=== PATIENT | female | born 1970 | race African-American/Black ===

== ENCOUNTER 2016-12-07 15:14 | Emergency (ER) | payer OTHER ==
[2016-12-07 15:20] VITALS: PULSE 85; TEMP 98.4; BMI 27.1
[2016-12-07] MEDS ORDERED: SODIUM CHLORIDE 1,000 ML IV ONE (15:47)
[2016-12-07] MEDS ORDERED: MECLIZINE HCL 25 MG TABLET (FP) PO ONE ×2 (15:47→17:38)
--- NOTE | 2016-12-07 15:47 | PDOC ---
History of Present Illness - History of Present Illness Initial Comments: 12/07/16 17:18 The patient is a 46 year old female, with a significant past medical history of asthma and vertigo (50mg meclizine as needed), who presents to the emergency department for intermittent dizziness, palpitations, and moments of closing here eyes and 'seeing black' today. The patient is a respiratory therapist at [employer]. She states her episodes of dizziness, which has a sesnation of room spinining/off balance sensation have occurred both while seated and standing. She states she needed to lean against the wall during an episode of dizziness while she was standing. She reports her dizziness lasts for just a few seconds and is followed by seeing black after closing her eyes (pt does report she rmained standing/seated when this occurred and there was no loss of tone) She reports a few short periods of heart palpitations which she noticed last week, however, reports last experiencing the palpitations earlier this afternoon during an episode of dizziness at work. She denies eating breakfast today, but reports eating lunch. She states she rarely eats breakfast. She admits to drinking about 22oz of water today because her 24oz bottle is almost empty. She states her vertigo is primarily head spinning, but not entire room spinning, and palpitations. She states she has the IUD in place and reports her menstrual periods are irregular because of it. She denies chest pain, shortness of breath, and headache. She denies fever, chills, nausea, vomit, diarrhea and constipation. She denies dysuria, frequency , urgency and hematuria. She denies vaginal bleeding. Allergies: NKDA Social history: Pt denies toxic habits PCP - Dr. Kapoor ([facility]) <Josette Moran - Last Filed: 12/07/16 17:18> <Miguel Sierra - Last Filed: 12/07/16 17:42> - General Chief Complaint: Syncope/Near Syncope Stated Complaint: NEAR SYNCOPE Time Seen by Provider: 12/07/16 15:18 Past History <Josette Moran - Last Filed: 12/07/16 17:18> - Past Medical History Asthma: Yes - Psycho/Social/Smoking Cessation Hx Anxiety: No Suicidal Ideation: No Smoking History: Never smoked Information on smoking cessation initiated: No Hx Alcohol Use: No Drug/Substance Use Hx: No Substance Use Type: None <Mariela,Miguel - Last Filed: 12/07/16 17:42> - Past Medical History Allergies/Adverse Reactions: Allergies Allergy/AdvReac Type Severity Reaction Status Date / Time albuterol Allergy Verified 12/09/15 11:30 hydromorphone HCl Allergy Hives Verified 12/09/15 11:31 [From Dilaudid] sumatriptan [From Imitrex] Allergy Verified 12/09/15 11:30 sumatriptan succinate Allergy Verified 12/09/15 11:30 [From Imitrex] Home Medications: Ambulatory Orders Meclizine HCl [Antivert -] 25 mg PO TID PRN #30 tablet 12/07/16 Review of Systems - Review of Systems Able to Perform ROS?: Yes Comments:: 12/07/16 17:18 CONSTITUTIONAL: No reported: Fever, Chills, Diaphoresis, Generalized Weakness, Malaise, Loss of Appetite HEENT: No reported: Rhinorrhea, Nasal Congestion, Throat Pain, Throat Swelling, Difficulty Swallowing, Mouth Swelling, Ear Pain, Eye Pain, CARDIOVASCULAR: reported: palpitations No reported: Chest Pain, Syncope, Irregular Heart Rate, Peripheral Edema RESPIRATORY: No reported: Cough, Shortness of Breath, SOB with Exertion, Orthopnea, Wheezing , Stridor, Hemoptysis GASTROINTESTINAL: No reported: Abdominal pain, Abdominal Distension, Nausea, Vomiting, Diarrhea, Constipation, Melena, Hematochezia GENITOURINARY: No reported: Dysuria, Frequency, Urgency, Hesitancy, Flank Pain, Genital Pain MUSCULOSKELETAL: No reported: Myalgia, Arthralgia, Joint Swelling, Back pain, Neck Pain SKIN: No reported: Rash, Itching, Pallor HEMEATOLOGIC/IMMUNOLOGIC: No reported: Easy Bleeding, Easy Bruising, Lymphadenopathy, Frequent infections ENDOCRINE: No reported: Unexplained Weight Gain, Unexplained Weight Loss, Heat Intolerance , Cold Intolerance NEUROLOGIC: (+) dizziness. No reported: Headache, Focal Weakness, Paresthesias, Lightheadedness, Unsteady Gait, Seizure, Mental Status Changes, Incontinence PSYCHIATRIC: No reported: Anxiety, Depression <Josette Moran - Last Filed: 12/07/16 17:18> *Physical Exam - Vital Signs Last Vital Signs Temp Pulse Resp BP Pulse Ox 98.4 F 85 20 113/68 100 12/07/16 15:18 04/23/17 15:18 12/07/16 15:18 12/07/16 16:57 12/07/16 15:18 - Physical Exam Comments: 12/07/16 17:18 GENERAL: The patient is awake, alert, and fully oriented, Nontoxic - in no acute distress. HEAD: Normocephalic, atraumatic. EYES: extraocular movements intact, sclera anicteric, conjunctiva clear. ENT: Normal voice, Moist mucous membranes. NECK: Normal range of motion, supple LUNGS: Breath sounds equal, clear to auscultation bilaterally. No wheezes, no rhonchi, no rales. HEART: Regular rate and rhythm, without murmur, rub or gallop. ABDOMEN: Soft, nontender, normoactive bowel sounds. No guarding, no rebound.No CVA tenderness EXTREMITIES: Normal range of motion, no edema. No clubbing or cyanosis. No cords, erythema, or tenderness. PSYCH: Normal mood, normal affect. SKIN: Warm, Dry, normal turgor, NEURO: moving all 4 extremities spontaneously and symmetrically, sensation intact and symmetric in upper/lower extremities, normal finger to nose and rapid alternating movements, <Josette Moran - Last Filed: 12/07/16 17:18> - Vital Signs Last Vital Signs Temp Pulse Resp BP Pulse Ox 98.4 F 85 20 140/108 100 12/07/16 15:18 12/07/16 15:18 12/07/16 15:18 12/07/16 15:18 12/07/16 15:18 <Miguel Sierra - Last Filed: 12/07/16 17:42> Heart Score/ECG Review - ECG Impressions Comment:: 12/07/16 17:39 Twelve-lead EKG was performed and reviewed by me. There is normal sinus rhythm with a normal rate. Rate of 72 The axis is normal. The intervals are normal. There is normal R wave progression There are no ST or T wave abnormalities. Impression: Normal twelve-lead EKG <Miguel Sierra - Last Filed: 12/07/16 17:42> ED Treatment Course - LABORATORY CBC & Chemistry Diagram: 12/07/16 15:49 12/07/16 15:49 - ADDITIONAL ORDERS Additional order review: Laboratory Results 12/07/16 12/07/16 15:49 15:49 Sodium 140 Potassium 4.2 Chloride 106 Carbon Dioxide 25 Anion Gap 9 BUN 13 D Creatinine 0.8 Creat Clearance w eGFR > 60 Random Glucose 93 Calcium 8.9 Total Bilirubin 0.9 D AST 29 D ALT 28 Alkaline Phosphatase 120 H Total Protein 7.0 Albumin 3.9 Urine Color Colorless Urine Appearance Clear Urine pH 7.0 D Ur Specific [place] 1.005 Urine Protein Negative Urine Glucose (UA) Negative Urine Ketones Negative Urine Blood 2+ H Urine Nitrite Negative Urine Bilirubin Negative Urine Urobilinogen Negative Ur Leukocyte Esterase 1+ H Urine RBC 6 Urine WBC 2 Ur Epithelial Cells Rare Urine HCG, Qual Negative 12/07/16 15:49 RBC 4.07 MCV 96.1 H MCHC 33.9 RDW 13.1 MPV 7.2 L Neutrophils % 54.8 Lymphocytes % 38.9 Monocytes % 5.0 Eosinophils % 0.5 Basophils % 0.8 D - Medications Given in the ED: ED Medications Discontinued Medications Generic Name Dose Route Start Last Admin Trade Name Ericq PRN Reason Stop Dose Admin Sodium Chloride 1,000 mls @ 1,000 mls/hr 12/07/16 15:47 12/07/16 16:19 Normal Saline - IV 12/07/16 16:46 1,000 mls/hr .Q1H ONE Administration Meclizine HCl 25 mg 12/07/16 15:47 12/07/16 15:52 Antivert - PO 12/07/16 15:48 25 mg ONCE ONE Administration <Josette Moran - Last Filed: 12/07/16 17:18> - LABORATORY CBC & Chemistry Diagram: 12/07/16 15:49 12/07/16 15:49 <Miguel Sierra - Last Filed: 12/07/16 17:42> Medical Decision Making - Medical Decision Making 12/07/16 15:58 46y no pmhx presents with complaint of vertigo/dizziness and episodes of ' seeing black', pt has endorsed feelng intemrittent episodes of palptiations w/o any cp the previous week - pt states she was at work today and had intermittent episodes where she would feel vertingous for a brief period, she would then close here eyes and 'see black for a few seconds' however there was no loss of tone. pt has an unremarkable physical exam. her vitals are normal. differential for the pts symptmos include orthostasis, anemia, vertigo, arrythmia, metabolic dernagement will ck cbc, cmp, will ck ekg to screen for arrythmia ua/uhcg will hydrate with fluids will give meclizien will reassess A portion of this note was documented by scribe services under my direction. I have reviewed the details of the note, within reason, and agree with the documentation with the following case summary and management plan written by me 12/07/16 17:36 labs reivewed pt feeling imrproved pt also states she has worked 7 13 hr shifts over the past 7 days, suspect her sypmtmos may also be secondary to exhaustion will d/c the pt back home to rest return precautions were discussed I discussed the physical exam findings, ancillary test results and final diagnoses with the patient. I answered all of the patient's questions. The patient was satisfied with the care received and felt comfortable with the discharge plan and treatment plan. The patient will call their primary care physician within 24 hours to arrange follow-up and will return to the Emergency Department with any new, persistent or worsening symptoms. <Miguel Sierra - Last Filed: 12/07/16 17:42> *DC/Admit/Observation/Transfer - Attestations Scribe Attestion: 12/07/16 17:20 Documentation prepared by Josette Moran, acting as medical collections specialist for Miguel Sierra MD, <Josette Moran - Last Filed: 12/07/16 17:18> - Discharge Dispostion Admit: No <Miguel Sierra - Last Filed: 12/07/16 17:42> Diagnosis at time of Disposition: Dizziness, Exhaustion - Discharge Dispostion Disposition: HOME Condition at time of disposition: Improved - Prescriptions Prescriptions: Meclizine HCl [Antivert -] 25 mg PO TID PRN #30 tablet PRN Reason: Vertigo - Referrals Referrals: STAFF,NOT ON [Primary Care Provider] - - Patient Instructions Printed Discharge Instructions: DI for Vertigo Additional Instructions: Return to the emergency department immediately with ANY new, persistent or worsening symptoms. You MUST call and follow up with your doctor tomorrow for further evaluation of your symptoms. Results were discussed with you. Please make sure your doctor reviews the results of your emergency evaluation. If you had any xrays during your visit, it was read preliminarily by myself, a Radiologist will review it and if there are any additional findings we will call you. Print Language: BRITISH - Post Discharge Activity Work/School Note: Back to Work
[2016-12-07] MEDS ORDERED: MECLIZINE HCL 25 MG TABLET (FP) ONE ×2 (15:52→17:38)
[2016-12-07 16:11] LABS: BASOPHIL 0.8 % (0-2.0); EOSINOPHIL 0.5 % (0-4.5); MCH 32.6 pg (25.7-33.7); MCHC 33.9 g/dl (32.0-36.0); MEAN CELL VOLUME 96.1 fl (80-96); MEAN PLT VOLUME 7.2 fl (7.5-11.1); NEUTROPHILS 54.8 % (42.8-82.8); PLATELET COUNT 244 K/MM3 (134-434); RDW 13.1 % (11.6-15.6); WHITE BLOOD COUNT 5.3 K/mm3 (4.0-10.0)
[2016-12-07 16:23] LABS: URINE APPEARANCE CLEAR; URINE BILIRUBIN NEGATIVE (NEGATIVE); URINE COLOR COLORLESS; URINE GLUCOSE (UA) NEGATIVE (NEGATIVE); URINE KETONE NEGATIVE (NEGATIVE); URINE NITRITE NEGATIVE (NEGATIVE); URINE PROTEIN NEGATIVE (NEGATIVE); URINE UROBILINOGEN NEGATIVE E.U./dl (0.2-1.0)
[2016-12-07 16:24] LABS: URINE BLOOD 2+ (NEGATIVE); URINE LEUK ESTERASE 1+ (NEGATIVE)
[2016-12-07 16:25] LABS: URINE RBC 6 /hpf (0-3); URINE WBC 2 /hpf (3-5)
[2016-12-07 16:56] LABS: ALBUMIN 3.9 g/dl (3.4-5.0); ALK PHOS 120 U/L (45-117); ANION GAP 9 (8-16); BILIRUBIN,TOTAL 0.9 mg/dL (0.2-1.0); CALCIUM 8.9 mg/dL (8.5-10.1); CO2 25 mmol/L (21-32); COCKROFT - GAULT 101.4645; CREATININE 0.8 mg/dL (0.55-1.02); GLUCOSE,RANDOM 93 mg/dL (74-106); SGOT/AST 29 U/L (15-37); SGPT/ALT 28 U/L (12-78)
[2016-12-07 16:57] VITALS: BP 113/68
[2016-12-07] MEDS ORDERED: diazePAM 5 MG TABLET PO ONE (17:32)
--- NOTE | 2016-12-10 08:22 | EKG ---
Test Reason : Blood Pressure : / mmHG Vent. Rate : 072 BPM Atrial Rate : 072 BPM P-R Int : 150 ms QRS Dur : 092 ms QT Int : 404 ms P-R-T Axes : 073 079 066 degrees QTc Int : 442 ms NORMAL SINUS RHYTHM POSSIBLE LEFT ATRIAL ENLARGEMENT BORDERLINE ECG NO PREVIOUS ECGS AVAILABLE Confirmed by KAYE MCCORMICK, JOSE ([id number]) on 12/10/2016 8:22:40 AM Referred By: Confirmed By:JOSE RESTREPO MD
== END 2016-12-07 18:22 | disposition home or self-care (01) ==
LOC: JER 15:14
PROC: 3E0337Z Introduction of Electrolytic and Water Balance Substance into Peripheral Vein, Percutaneous Approach (ICD-10-PCS; principal; 2016-12-07)
DX: R42 Dizziness and giddiness (principal); R53.83 Other fatigue
CPT/HCPCS: 36415; 80053; 81003; 81015; 84703; 85025; 93005; 93010; 99284-25

== ENCOUNTER 2017-05-18 15:47 | Emergency (ER) | payer OTHER ==
[2017-05-18 15:55] VITALS: BP 155/70; PULSE 84; TEMP 98.4; BMI 26.6
[2017-05-18] MEDS ORDERED: SODIUM CHLORIDE 1,000 ML IV STA (16:06)
[2017-05-18] MEDS ORDERED: METOCLOPRAMIDE HCL INJECTION 10 MG/2 ML VIAL IVPB ONE (16:07)
--- NOTE | 2017-05-18 16:18 | PDOC ---
History of Present Illness - General Chief Complaint: Syncope/Near Syncope Stated Complaint: Syncope/Near Syncope Time Seen by Provider: 05/18/17 15:51 History Source: Patient Exam Limitations: No Limitations - History of Present Illness Initial Comments: 05/18/17 16:13 Patient is a 46F with history of vertigo, asthma, and migraines here today complaining of headache and two syncopal episodes. The headache has been going on for the past two weeks. The pain is located behind both of her eyes and has associated nausea, light-sensitivity and sound-sensitivity. Headache was not a sudden onset, patient is unsure of what she was doing during onset. The headache slowly built in intensity over the past two weeks. She had two episodes of syncope; one today and one yesterday. She denies any precipitating symptoms including chest pain, shortness of breath and palpitations. She says her PMD gave her a prescription for a MRI today. She reports not taking her meclizine today because she had to drive and she cannot drive after taking meclizine. She denies fevers, chills, shortness of breath and abdominal pain. Past History - Past Medical History Allergies/Adverse Reactions: Allergies Allergy/AdvReac Type Severity Reaction Status Date / Time albuterol Allergy Verified 05/18/17 15:53 hydromorphone HCl Allergy Hives Verified 05/18/17 15:53 [From Dilaudid] sumatriptan [From Imitrex] Allergy Verified 05/18/17 15:53 sumatriptan succinate Allergy Verified 05/18/17 15:53 [From Imitrex] Home Medications: Ambulatory Orders Meclizine HCl [Antivert -] 25 mg PO TID PRN #30 tablet 12/07/16 Asthma: Yes Other medical history: migraines vertigo - Suicide/Smoking/Psychosocial Hx Smoking History: Never smoked Information on smoking cessation initiated: No Hx Alcohol Use: No Drug/Substance Use Hx: No Substance Use Type: None Review of Systems - Review of Systems Comments:: 05/18/17 16:18 GENERAL/CONSTITUTIONAL: No fever or chills. No weakness. HEAD, EYES, EARS, NOSE AND THROAT: No change in vision. No sore throat. CARDIOVASCULAR: No chest pain or shortness of breath RESPIRATORY: No cough, wheezing, or hemoptysis. GASTROINTESTINAL: Positive for nausea. Negative for vomiting, diarrhea or constipation. GENITOURINARY: No dysuria, frequency, or change in urination. MUSCULOSKELETAL: No joint or muscle swelling or pain. No neck or back pain. SKIN: No rash NEUROLOGIC: Positive for headache, vertigo and loss of consciousness ENDOCRINE: No increased thirst. No abnormal weight change HEMATOLOGIC/LYMPHATIC: No anemia, easy bleeding, or history of blood clots. ALLERGIC/IMMUNOLOGIC: No hives or skin allergy. *Physical Exam - Vital Signs Last Vital Signs Temp Pulse Resp BP Pulse Ox 98.4 F 84 20 155/70 100 05/18/17 15:50 05/18/17 15:50 05/18/17 15:50 05/18/17 15:50 05/18/17 15:50 - Physical Exam Comments: 05/18/17 16:19 GENERAL: Awake, alert, and fully oriented, keeping eyes closed in darkened room HEAD: No signs of trauma, normocephalic, atraumatic EYES: PERRLA, EOMI, sclera anicteric, conjunctiva clear ENT: Auricles normal inspection, hearing grossly normal, nares patent, oropharynx clear without exudates. Moist mucosa NECK: Normal ROM, supple, no lymphadenopathy, JVD, or masses LUNGS: No distress, speaks full sentences, clear to auscultation bilaterally HEART: Regular rate and rhythm, normal S1 and S2, no murmurs, rubs or gallops, peripheral pulses normal and equal bilaterally. ABDOMEN: Soft, nontender, normoactive bowel sounds. No guarding, no rebound. No masses EXTREMITIES: Normal inspection, Normal range of motion, no edema. No clubbing or cyanosis. NEUROLOGICAL: Cranial nerves II through XII grossly intact. Normal speech, normal gait, no focal sensorimotor deficits SKIN: Warm, Dry, normal turgor, no rashes or lesions noted. ED Treatment Course - LABORATORY CBC & Chemistry Diagram: 05/18/17 16:20 05/18/17 16:20 - RADIOLOGY Radiology Studies Ordered: Category Date Time Status HEAD CT WITHOUT CONTRAST [CT] Stat CT Scan 05/18/17 16:08 Ordered CHEST PA & LAT [RAD] Stat Radiology 05/18/17 16:06 Ordered Medical Decision Making - Medical Decision Making 05/18/17 16:19 46F with history of asthma, syncopal episodes, and migraines here today complaining of headache and syncope. Vital signs stable. Concern for an intracranial mass due to change in patient's baseline headache. Do not suspect SAH due to gradual onset. Complex migraine also is possible. Will do heart workup with ua, upreg and head ct. Will treat with fluids and reglan. 05/18/17 16:59 EKG shows normal sinus rhythm, normal rate, normal axis. No st elevations or depressions. No contiguous t wave abnormalities. QTc 422. 05/18/17 17:23 Laboratory Tests 05/18/17 16:20 Creatine Kinase 370 H CK elevated to 370. 05/18/17 17:32 Laboratory Tests 05/18/17 16:20 WBC 6.3 Hgb 13.4 Hct 39.2 Plt Count 273 CBC normal, upreg negative, trop neg. CT, CXR pending 05/18/17 18:36 CT negative, CXR shows no acute cardiopulmonary process. Patient reports that her headache has mostly resolved. Spoke with patient regarding admission. Patient does not want to stay in the hospital. Patient is aware of possible stroke, cardiac and intracranial possibilities for her head pain. Patient has already established primary care follow up and is in the process of getting an outpatient MRI. Patient is aware of the risks and benefits. Return precautions given. Instructed to follow up with primary care doctor. Will discharge to home. *DC/Admit/Observation/Transfer Diagnosis at time of Disposition: Headache, Dizziness, Syncope - Discharge Dispostion Disposition: HOME Condition at time of disposition: Good Admit: No - Patient Instructions Printed Discharge Instructions: DI for Syncope in Adults (Fainting), DI for Dizziness-Nonvertigo Additional Instructions: Please follow up with your primary care physician as we talked about. Dr Us
[2017-05-18] MEDS ORDERED: METOCLOPRAMIDE HCL INJECTION 10 MG/2 ML VIAL ONE (16:20)
[2017-05-18 16:48] LABS: BASOPHIL 0.5 % (0-2.0); EOSINOPHIL 1.1 % (0-4.5); MCH 32.8 pg (25.7-33.7); MCHC 34.1 g/dl (32.0-36.0); MEAN CELL VOLUME 96.3 fl (80-96); MEAN PLT VOLUME 7.4 fl (7.5-11.1); NEUTROPHILS 48.7 % (42.8-82.8); PLATELET COUNT 273 K/MM3 (134-434); RDW 12.7 % (11.6-15.6); WHITE BLOOD COUNT 6.3 K/mm3 (4.0-10.0)
[2017-05-18 16:50] LABS: URINE APPEARANCE CLEAR; URINE BILIRUBIN NEGATIVE (NEGATIVE); URINE BLOOD NEGATIVE (NEGATIVE); URINE COLOR STRAW; URINE GLUCOSE (UA) NEGATIVE (NEGATIVE); URINE KETONE NEGATIVE (NEGATIVE); URINE NITRITE NEGATIVE (NEGATIVE); URINE PROTEIN NEGATIVE (NEGATIVE); URINE UROBILINOGEN NEGATIVE mg/dL (0.2-1.0)
[2017-05-18 16:53] LABS: URINE LEUK ESTERASE 2+ (NEGATIVE)
[2017-05-18 16:55] LABS: URINE BACTERIA RARE /hpf (NONE SEEN); URINE MUCUS RARE; URINE RBC 1 /hpf (0-3); URINE WBC 7 /hpf (3-5)
--- NOTE | 2017-05-18 17:06 | PDOC ---
Attending Attestation - HPI HPI: 05/18/17 17:10 46 year old female with history of asthma, BPPV, and migraines who presents to the ED complaining of 2 weeks of progressively worsening headache. She describes her headache as behind both eyes, with assocaited nausea, photophobia , and phonophobia. She also reports two episodes of brief loss of consciousness , once yesterday and once today. The patient denies chest pain, palpitations, shortness of breath. She denies fever or chills. She denies abdominal pain, nausea, vomiting, diarrhea. She denies blurred vision, numbness, tingling, or focal weakness. - Physicial Exam PE: 05/18/17 17:09 GENERAL: Awake, alert, and fully oriented, in no acute distress HEAD: No signs of trauma EYES: PERRLA, EOMI, sclera anicteric, conjunctiva clear ENT: Auricles normal inspection, hearing grossly normal, nares patent, oropharynx clear without exudates. Moist mucosa NECK: Normal ROM, supple, no lymphadenopathy, JVD, or masses LUNGS: Breath sounds equal, clear to auscultation bilaterally. No wheezes, and no crackles HEART: Regular rate and rhythm, normal S1 and S2, no murmurs, rubs or gallops ABDOMEN: Soft, nontender, normoactive bowel sounds. No guarding, no rebound. No masses EXTREMITIES: Normal range of motion, no edema. No clubbing or cyanosis. No cords, erythema, or tenderness NEUROLOGICAL: Cranial nerves II through XII grossly intact. Normal speech, normal gait. 5/5 MS x 4 extremities. Sensation intact throughout. Normal finger nose finger. Normal heel gomez. No pronator drift. SKIN: Warm, Dry, normal turgor, no rashes or lesions noted. - Medical Decision Making 05/18/17 17:10 Documentation prepared by Ashlyn Smith, acting as medical transcription radiology for Nikolas Ureña MD. <Ashlyn Smith - Last Filed: 05/18/17 17:15> - Resident Resident Name: Reese Us - ED Attending Attestation I have performed the following: I have examined & evaluated the patient, The case was reviewed & discussed with the resident, I agree w/resident's findings & plan, Exceptions are as noted - Medical Decision Making 05/18/17 17:06 A portion of this note was written by my scribe, under my supervision. Vital Signs Temp Pulse Resp BP Pulse Ox 98.4 F 84 20 155/70 100 05/18/17 15:50 05/18/17 15:50 05/18/17 15:50 05/18/17 15:50 05/18/17 15:50 46-year-old female employee at [employer], history of migraines presents with syncope. Patient reports 2 weeks of pressure-like headache with associated photophobia. She reports that this feels somewhat different from her usual migraines. She also has a history of vertigo reports that she's been feeling potentially vertiginous despite her persistence of symptoms. She has a family history where her mother and father both had strokes with her mother having stroke at age of 50. Denies any numbness or weakness, dysphasia or dysmetria or gait instability. Patient was at [employer] today when she felt suddenly lightheaded and syncopized. Denies trauma. Patient denied chest pain or shortness of breath. Came into the ED for further evaluation. Given the circumstances, we'll need to rule out cardiac etiology for sleepy. However, with persistence of vertigo, we'll obtain a head CT to rule out neurologically etiology. Should potentially consider posterior fossa stroke though the patient is neurologically intact. Labs, EKG. 05/18/17 18:35 CBC, BMP 05/18/17 16:20 05/18/17 16:20 CMP Sodium 142 mmol/L (136-145) 05/18/17 16:20 Potassium 4.1 mmol/L (3.5-5.1) 05/18/17 16:20 Chloride 109 mmol/L (98-107) H 05/18/17 16:20 Carbon Dioxide 30 mmol/L (21-32) 05/18/17 16:20 Anion Gap 3 (8-16) L 05/18/17 16:20 BUN 12 mg/dL (7-18) 05/18/17 16:20 Creatinine 0.9 mg/dL (0.55-1.02) 05/18/17 16:20 Creat Clearance w eGFR > 60 (>60) 05/18/17 16:20 Random Glucose 100 mg/dL (74-106) 05/18/17 16:20 Calcium 9.0 mg/dL (8.5-10.1) 05/18/17 16:20 Magnesium 2.2 mg/dL (1.8-2.4) 05/18/17 16:20 Total Bilirubin 0.7 mg/dL (0.2-1.0) D 05/18/17 16:20 AST 25 U/L (15-37) 05/18/17 16:20 ALT 28 U/L (12-78) 05/18/17 16:20 Alkaline Phosphatase 134 U/L (45-117) H 05/18/17 16:20 Creatine Kinase 370 IU/L (26-192) H 05/18/17 16:20 Creatine Kinase Index 0.3 % (0.0-5.0) 05/18/17 16:20 CK-MB (CK-2) 1.180 ng/mL (0.5-3.6) 05/18/17 16:20 Troponin I < 0.02 ng/ml (0.00-0.05) 05/18/17 16:20 Total Protein 7.2 g/dl (6.4-8.2) 05/18/17 16:20 Albumin 3.8 g/dl (3.4-5.0) 05/18/17 16:20 Urine Test Results Urine Color Straw 05/18/17 16:20 Urine Appearance Clear 05/18/17 16:20 Urine pH 6.0 (5.0-8.0) 05/18/17 16:20 Urine Protein Negative (NEGATIVE) 05/18/17 16:20 Urine Glucose (UA) Negative (NEGATIVE) 05/18/17 16:20 Urine Ketones Negative (NEGATIVE) 05/18/17 16:20 Urine Blood Negative (NEGATIVE) 05/18/17 16:20 Urine Nitrite Negative (NEGATIVE) 05/18/17 16:20 Urine Bilirubin Negative (NEGATIVE) 05/18/17 16:20 Urine RBC 1 /hpf (0-3) 05/18/17 16:20 Urine WBC 7 /hpf (3-5) 05/18/17 16:20 Ur Epithelial Cells Rare /hpf (FEW) 05/18/17 16:20 Urine Bacteria Rare /hpf (NONE SEEN) 05/18/17 16:20 Urine Mucus Rare 05/18/17 16:[address] negative. She feels better from the reglan. However, pt really would like to go home. Though patient would potentially benefit from MRI, the patient would very much like to go home. Will discuss the benefits and risks of MRI, and if patient really would like to go home, will discharge her home with neuro follow up. <Nikolas Ureña - Last Filed: 05/18/17 18:37> Heart Score/ECG Review #1 ECG reviewed & interpreted by me at: 16:50 05/18/17 16:57 NSR 64, no std/marco a, normal axis, normal intervals, QTC 422 msec, no brugada, no HOCM, no WPW <Nikolas Ureña - Last Filed: 05/18/17 18:37>
[2017-05-18 17:10] LABS: ALBUMIN 3.8 g/dl (3.4-5.0); ANION GAP 3 (8-16); BILIRUBIN,TOTAL 0.7 mg/dL (0.2-1.0); CO2 30 mmol/L (21-32); CREATININE 0.9 mg/dL (0.55-1.02); GLUCOSE,RANDOM 100 mg/dL (74-106); SGPT/ALT 28 U/L (12-78); TOT PROT 7.2 g/dl (6.4-8.2)
[2017-05-18 17:12] LABS: ALK PHOS 134 U/L (45-117); CPK 370 IU/L (26-192); TROPONIN I < 0.02 ng/ml (0.00-0.05)
[2017-05-18 17:14] LABS: MAGNESIUM 2.2 mg/dL (1.8-2.4); SGOT/AST 25 U/L (15-37)
[2017-05-18 17:17] LABS: INR 1.09 (0.82-1.09)
--- NOTE | 2017-05-19 09:37 | EKG ---
Test Reason : Blood Pressure : / mmHG Vent. Rate : 064 BPM Atrial Rate : 064 BPM P-R Int : 158 ms QRS Dur : 092 ms QT Int : 410 ms P-R-T Axes : 080 077 065 degrees QTc Int : 422 ms NORMAL SINUS RHYTHM NORMAL ECG WHEN COMPARED WITH ECG OF 07-DEC-2016 15:20, NO SIGNIFICANT CHANGE WAS FOUND Confirmed by JOSE RESTREPO MD ([id number]) on 05/19/2017 9:36:53 AM Referred By: Confirmed By:JOSE RESTREPO MD
== END 2017-05-18 18:56 | disposition home or self-care (01) ==
LOC: JER 15:47
PROC: 3E033GC Introduction of Other Therapeutic Substance into Peripheral Vein, Percutaneous Approach (ICD-10-PCS; principal; 2017-05-18)
DX: R42 Dizziness and giddiness (principal); G43.909 Migraine, unspecified, not intractable, without status migrainosus; J45.909 Unspecified asthma, uncomplicated
CPT/HCPCS: 36415; 70450-TC; 71020-TC; 80053; 81003; 81015; 82553; 83735; 84484; 84703; 85025; 85610; 93005; 93010; 99282-25

== ENCOUNTER 2018-01-02 15:14 | Emergency (ER) | payer OTHER ==
[2018-01-02 15:18] VITALS: BP 133/70; PULSE 69; TEMP 97.6; BMI 27.9
--- NOTE | 2018-01-02 16:03 | PDOC ---
History of Present Illness - General Chief Complaint: Sore Throat Stated Complaint: TOE PAIN Time Seen by Provider: 01/02/18 15:22 History Source: Patient - History of Present Illness Timing/Duration: reports: other Associated Symptoms: reports: sore throat. denies: cough, earache, facial pain , fever/chills, nasal congestion Past History - Past Medical History Allergies/Adverse Reactions: Allergies Allergy/AdvReac Type Severity Reaction Status Date / Time albuterol Allergy Verified 05/18/17 15:53 hydromorphone HCl Allergy Hives Verified 05/18/17 15:53 [From Dilaudid] sumatriptan [From Imitrex] Allergy Verified 05/18/17 15:53 sumatriptan succinate Allergy Verified 05/18/17 15:53 [From Imitrex] Home Medications: Ambulatory Orders NK [No Known Home Medication] 01/02/18 Asthma: Yes - Suicide/Smoking/Psychosocial Hx Smoking History: Never smoked Information on smoking cessation initiated: No Hx Alcohol Use: No Drug/Substance Use Hx: No Substance Use Type: None Review of Systems - Review of Systems Constitutional: No: Chills, Fever HEENTM: Yes: Throat Pain. No: Ear Pain Respiratory: No: Cough *Physical Exam - Vital Signs Last Vital Signs Temp Pulse Resp BP Pulse Ox 97.6 F 69 20 133/70 100 01/02/18 15:16 01/02/18 15:16 01/02/18 15:16 01/02/18 15:16 01/02/18 15:16 - Physical Exam General Appearance: Yes: Appropriately Dressed. No: Apparent Distress HEENT: positive: Normal ENT Inspection, Normal Voice, TMs Normal, Pharynx Normal. negative: Scleral Icterus (R), Scleral Icterus (L), Tonsillar Exudate, Tonsillar Erythema Neck: positive: Supple Respiratory/Chest: negative: Respiratory Distress Integumentary: positive: Dry, Warm Neurologic: positive: Fully Oriented, Alert, Normal Mood/Affect Medical Decision Making - Medical Decision Making 01/02/18 16:00 47 yo F, no sig hx, p/w sore throat x 2 days. No cough, ear pain, f/c. Taking motrin w/ some relief. 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 Pt well jerome w/ unremarkable exam. M/l viral. Strep pending 01/02/18 16:05 Strep neg. Dc w/ motrin as needed *DC/Admit/Observation/Transfer Diagnosis at time of Disposition: Pharyngitis Qualifiers: Pharyngitis/tonsillitis etiology: unspecified etiology Qualified Code(s): J02.9 - Acute pharyngitis, unspecified - Discharge Dispostion Disposition: HOME Condition at time of disposition: Good - Referrals Referrals: Asha Kapoor [Primary Care Provider] - - Patient Instructions Printed Discharge Instructions: Viral Pharyngitis Additional Instructions: Take motrin for pain as needed - Post Discharge Activity
== END 2018-01-02 16:09 | disposition home or self-care (01) ==
LOC: JERFT 15:14 → JER 15:14 → JERFT 16:09
DX: J02.9 Acute pharyngitis, unspecified (principal)
CPT/HCPCS: 87070; 87430; 99281-25

== ENCOUNTER 2019-07-10 10:19 | Emergency (ER) | payer OTHER ==
[2019-07-10 10:25] VITALS: BP 130/82; PULSE 71; TEMP 98; BMI 27.8
[2019-07-10] MEDS ORDERED: METOCLOPRAMIDE HCL INJECTION 10 MG/2 ML VIAL IVPB ONE (10:29)
[2019-07-10] MEDS ORDERED: KETOROLAC TROMETHAMINE 30 MG/1 ML VIAL IVPUSH ONE (10:30)
--- NOTE | 2019-07-10 10:34 | PDOC ---
History of Present Illness - General Chief Complaint: Headache Stated Complaint: HEADACHE Time Seen by Provider: 07/10/19 10:27 History Source: Patient - History of Present Illness Timing/Duration: reports: other Past History - Past Medical History Allergies/Adverse Reactions: Allergies Allergy/AdvReac Type Severity Reaction Status Date / Time albuterol Allergy Verified 07/10/19 10:23 hydromorphone HCl Allergy Hives Verified 07/10/19 10:23 [From Dilaudid] sumatriptan [From Imitrex] Allergy Verified 07/10/19 10:23 sumatriptan succinate Allergy Verified 07/10/19 10:23 [From Imitrex] Home Medications: Ambulatory Orders Ibuprofen [Ibu] 800 mg PO TID PRN #30 tablet 07/10/19 Asthma: Yes - Surgical History Orthopedic Surgery: Yes - Psycho Social/Smoking Cessation Hx Smoking History: Never smoked Hx Alcohol Use: No Drug/Substance Use Hx: No Substance Use Type: None Review of Systems - Review of Systems Constitutional: No: Chills, Fever ABD/GI: No: Nausea, Vomiting Neurological: Yes: Headache. No: Numbness, Tingling, Weakness, Dizziness *Physical Exam - Vital Signs Last Vital Signs Temp Pulse Resp BP Pulse Ox 98 F 71 18 130/82 98 07/10/19 10:23 07/10/19 10:23 07/10/19 10:23 07/10/19 10:23 07/10/19 10:23 - Physical Exam General Appearance: Yes: Appropriately Dressed. 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 Patient states for the past 2 weeks has had a mostly occipital pressure that is intermittent, usually lasts for an hour and then resolve, 6-7/10. States she sometimes feels a cold sensation ni her head. States symptoms does not feel like her migraines and has not taken anything for the pain. 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 No current dizziness, visual changes, nausea vomiting or focal weakness. Patient has had MRI in the past that were normal per patient See exam HARPER Current pain different from migraines Neg MRI in past No recent head injury Stable and well jerome here w/ no neuro deficits -upreg -pain control>reassess 07/10/19 11:34 Pain improved with meds per patient. Pt now states she has neuro appt in 2 days and will f/u 07/10/19 16:32 Discharge - Discharge Information Problems reviewed: Yes Clinical Impression/Diagnosis: Headache Qualifiers: Headache type: unspecified Headache chronicity pattern: unspecified pattern Intractability: not intractable Qualified Code(s): R51 - Headache Condition: Improved Disposition: HOME - Additional Discharge Information Prescriptions: Ibuprofen [Ibu] 800 mg PO TID PRN #30 tablet PRN Reason: Pain - Follow up/Referral - Patient Discharge Instructions Patient Printed Discharge Instructions: DI for Headache Additional Instructions: Take motrin as directed and follow-up with your neurologist - Post Discharge Activity Work/Back to School Note: Back to Work
[2019-07-10] MEDS ORDERED: METOCLOPRAMIDE HCL INJECTION 10 MG/2 ML VIAL ONE (10:48)
[2019-07-10] MEDS ORDERED: KETOROLAC TROMETHAMINE 30 MG/1 ML VIAL ONE (10:48)
== END 2019-07-10 12:00 | disposition home or self-care (01) ==
LOC: JER 10:19
PROC: 3E0333Z Introduction of Anti-inflammatory into Peripheral Vein, Percutaneous Approach (ICD-10-PCS; principal; 2019-07-10)
PROC: 3E033GC Introduction of Other Therapeutic Substance into Peripheral Vein, Percutaneous Approach (ICD-10-PCS; 2019-07-10)
DX: R51 Headache (principal); Z86.69 Personal history of other diseases of the nervous system and sense organs; Z88.8 Allergy status to other drugs, medicaments and biological substances
CPT/HCPCS: 84703; 99282-25

== ENCOUNTER 2020-03-10 15:00 | Emergency (ER) | payer OTHER ==
--- NOTE | 2020-03-10 15:05 | PDOC ---
Rapid Medical Evaluation Time Seen by Provider: 03/10/20 15:02 Medical Evaluation: Allergies Allergy/AdvReac Type Severity Reaction Status Date / Time albuterol Allergy Verified 03/06/20 15:18 hydromorphone HCl Allergy Hives Verified 03/06/20 15:18 [From Dilaudid] sumatriptan [From Imitrex] Allergy Verified 03/06/20 15:18 sumatriptan succinate Allergy Verified 03/06/20 15:18 [From Imitrex] 03/10/20 15:02 I performed a brief in-person evaluation of this patient. Pt is a 49 y/o who presents to the ED with complaint of vaginal burning and concern for yeast vaginitis. Pt states she is also having burning with urination. Pertinent physical exam findings: vaginal exam deferred, speaking in full sentences I have ordered the following: UA, UCX Patient to proceed to ED for further evaluation. 03/10/20 15:05 Discharge Disposition - Diagnosis Dysuria - Referrals - Patient Instructions - Post Discharge Activity
[2020-03-10 15:11] VITALS: BP 135/68; PULSE 70; TEMP 97.9; BMI 28.4
[2020-03-10 15:41] LABS: EPI CELLS 4 /uL (0-25.1); HYALINE CASTS 0 /uL (0-3.1); PH,URINE 6.5 (5.0-8.0); URINE APPEARANCE CLEAR; URINE BACTERIA 132 /uL (0-1359); URINE BILIRUBIN NEGATIVE (NEGATIVE); URINE COLOR YELLOW; URINE GLUCOSE (UA) NEGATIVE (NEGATIVE); URINE KETONE NEGATIVE (NEGATIVE); URINE LEUK ESTERASE 1+ (NEGATIVE); URINE NITRITE NEGATIVE (NEGATIVE); URINE PROTEIN NEGATIVE (NEGATIVE); URINE RBC 13 /uL (0-23.9); URINE UROBILINOGEN 0.2 mg/dL (0.2-1.0); URINE WBC 10 /uL (0-25.8)
--- NOTE | 2020-03-10 16:04 | PDOC ---
History of Present Illness - General Chief Complaint: Urinary Problem Stated Complaint: PAIN Time Seen by Provider: 03/10/20 15:02 History Source: Patient Exam Limitations: No Limitations - History of Present Illness Travel History: No Initial Comments: 03/10/20 16:02 49-year-old female presents to ED with complaints of urinary frequency and burning after urination for the past few days. Patient has no complaints of abdominal pain, fever, or back pain. Patient denies any recent travel vaginal discharge or irregular menses since she is currently menopausal. Timing/Duration: reports: intermittent Quality: reports: mild Pain Radiation: reports: no radiation Aggravating Factors: improves with: Voiding Alleviating Factors: improves with: None Past History - Travel History Traveled outside of the country in the last 30 days: No Close contact w/someone who was outside of country & ill: No - Medical History Allergies/Adverse Reactions: Allergies Allergy/AdvReac Type Severity Reaction Status Date / Time albuterol Allergy Verified 03/06/20 15:18 hydromorphone HCl Allergy Hives Verified 03/06/20 15:18 [From Dilaudid] sumatriptan [From Imitrex] Allergy Verified 03/06/20 15:18 sumatriptan succinate Allergy Verified 03/06/20 15:18 [From Imitrex] Home Medications: Ambulatory Orders Ibuprofen [Ibu] 800 mg PO PRN PRN 03/06/20 Fluconazole [Diflucan] 150 mg PO ONCE #1 tablet 03/10/20 Nitrofurantoin Monohyd/M-Cryst [Macrobid -] 100 mg PO BID #14 capsule 03/10/20 Asthma: Yes COPD: No - Surgical History Orthopedic Surgery: Yes - Psycho-Social/Smoking History Patient Lives Alone: No Lives with/in: parents Smoking History: Never smoked Have you smoked in the past 12 months: No - Substance Abuse Hx (Audit-C & DAST Scrn) How often the patient has a drink containing alcohol: Never Score: In Men: 4 or > Positive; In Women: 3 or > Positive: 0 Screen Result (Pos requires Nsg. Audit-10AR): Negative In the last yr the pt used illegal drug/Rx for NonMed reason: No Score: Yes response is considered Positive: 0 Screen Result (Positive result requires Nsg. DAST-10): Negative Review of Systems - Review of Systems Able to Perform ROS?: No Is the patient limited Tajik proficient: No Constitutional: No: Symptoms Reported HEENTM: No: Symptoms Reported ABD/GI: No: Symptoms Reported : Yes: Burning, Frequency Integumentary: No: Symptoms Reported Neurological: No: Symptoms reported Hematologic/Lymphatic: No: Symptoms Reported *Physical Exam - Vital Signs Last Vital Signs Temp Pulse Resp BP Pulse Ox 97.9 F 70 18 135/68 99 03/10/20 15:07 03/10/20 15:07 03/10/20 15:07 03/10/20 15:07 03/10/20 15:07 - Physical Exam General Appearance: Yes: Nourished, Appropriately Dressed. No: Apparent Distress Gastrointestinal/Abdominal: positive: Soft. negative: Tenderness Musculoskeletal: negative: CVA Tenderness Extremity: positive: Normal Inspection Integumentary: positive: Normal Color, Warm, Moist Neurologic: positive: Motor Strength 5/5 (Ambulatory) ED Treatment Course - ADDITIONAL ORDERS Additional order review: Laboratory Results 03/10/20 15:15 Urine Color Yellow Urine Appearance Clear Urine pH 6.5 Ur Specific [place] 1.022 Urine Protein Negative Urine Glucose (UA) Negative Urine Ketones Negative Urine Blood Negative Urine Nitrite Negative Urine Bilirubin Negative Urine Urobilinogen 0.2 Ur Leukocyte Esterase 1+ H Urine WBC (Auto) 10 Urine RBC (Auto) 13 Urine Casts (Auto) 0 U Epithel Cells (Auto) 4 Urine Bacteria (Auto) 132 Medical Decision Making - Medical Decision Making 03/10/20 16:03 Chief complaint: Urinary frequency and dysuria for the past few days. Exam: Patient no acute findings on exam vital signs stable. Plan: Urine urine culture. 03/10/20 16:04 Laboratory Tests 03/10/20 15:15 Ur Leukocyte Esterase 1+ H Urine WBC (Auto) 10 Patient ordered for Macrobid along with Diflucan since she states has urinary tract infections associated UTIs. No previous urine culture on file to check fo r sensitivity Discharge - Discharge Information Problems reviewed: Yes Clinical Impression/Diagnosis: UTI (urinary tract infection) Condition: Good Disposition: HOME - Additional Discharge Information Prescriptions: Fluconazole [Diflucan] 150 mg PO ONCE #1 tablet Nitrofurantoin Monohyd/M-Cryst [Macrobid -] 100 mg PO BID #14 capsule - Follow up/Referral Referrals: Asha Kapoor [Primary Care Provider] - - Patient Discharge Instructions Patient Printed Discharge Instructions: DI for Urinary Tract Infection (UTI) Additional Instructions: Take medication as prescribed. Drink plenty of water wear cotton underwear and clean front to back. - Post Discharge Activity
== END 2020-03-10 16:12 | disposition home or self-care (01) ==
LOC: JER 15:00
DX: R30.0 Dysuria (principal)
CPT/HCPCS: 81003; 87086; 99283-25

== ENCOUNTER 2024-04-10 21:01 | Emergency (ER) | payer OTHER ==
[2024-04-10 21:07] VITALS: BMI 31.6
[2024-04-10 22:21] LABS: BASO % 0.2 % (0-2.0); EOS % 0.3 % (0-4.5); HEMATOCRIT 37.6 % (32.4-45.2); HEMOGLOBIN 12.5 GM/dL (10.7-15.3); LYMPH % 21.1 % (8-40); MCH 30.9 pg (25.7-33.7); MCHC 33.2 g/dl (32.0-36.0); MONO % 2.2 % (3.8-10.2); NEUT % 76.2 % (42.8-82.8); PLATELET COUNT 309 10^3/uL (134-434); RBC 4.05 M/mm3 (3.60-5.2); WHITE BLOOD COUNT 6.3 K/mm3 (4.0-10.0)
[2024-04-10 23:03] LABS: POTASSIUM 4.1 mmol/L (3.5-5.1)
[2024-04-10 23:05] LABS: CALCIUM 9.5 mg/dL (8.5-10.1)
[2024-04-10 23:06] LABS: ALBUMIN 3.9 g/dl (3.4-5.0)
[2024-04-10 23:09] LABS: CREATININE 0.6 mg/dL (0.55-1.3)
[2024-04-10 23:11] LABS: BILIRUBIN,TOTAL 0.5 mg/dL (0.2-1); TOT PROT 7.6 g/dl (6.4-8.2)
[2024-04-10] MEDS ORDERED: KETOROLAC TROMETHAMINE 30 MG/1 ML VIAL ONE (23:18)
[2024-04-10] MEDS: KETOROLAC TROMETHAMINE 30 MG/1 ML VIAL IVPUSH ONE (23:24)
[2024-04-10] MEDS ORDERED: BENZONATATE 200 MG CAPSULE PO PRN (23:53)
[2024-04-10] MEDS ORDERED: ALBUTEROL SO4 2.5/IPRATROPIUM 0.5 INH SOL 3 ML VIAL.NEB. NEB ONE (23:57)
[2024-04-10] MEDS ORDERED: ACETAMINOPHEN INJECTION 100 ML ONE (23:58)
[2024-04-11] MEDS: ALBUTEROL SO4 2.5/IPRATROPIUM 0.5 INH SOL 3 ML VIAL.NEB. NEB ONE (00:03)
[2024-04-11] MEDS: ACETAMINOPHEN 1000 MG/100 ML BAG IVPB ONE (00:04)
[2024-04-11] MEDS: SODIUM CHLORIDE FOR INHALATION 3 ML VIAL.NEB IH ONE (00:10)
[2024-04-11 01:05] VITALS: BP 120/74; PULSE 66; RESP 16; TEMP 97.7
== END 2024-04-11 01:12 | disposition home or self-care (01) ==
LOC: JER 21:01
PROC: 3E033NZ Introduction of Analgesics, Hypnotics, Sedatives into Peripheral Vein, Percutaneous Approach (ICD-10-PCS; principal; 2024-04-11)
PROC: 3E0333Z Introduction of Anti-inflammatory into Peripheral Vein, Percutaneous Approach (ICD-10-PCS; 2024-04-11)
PROC: 3E0F7GC Introduction of Other Therapeutic Substance into Respiratory Tract, Via Natural or Artificial Opening (ICD-10-PCS; 2024-04-11)
DX: R05.9 Cough, unspecified (principal); J02.9 Acute pharyngitis, unspecified; R51.9 Headache, unspecified; M54.9 Dorsalgia, unspecified; J98.8 Other specified respiratory disorders; Z20.822 Contact with and (suspected) exposure to COVID-19
CPT/HCPCS: 0241U-QW; 36415; 71046-TC-FY; 80053; 85025; 93005; 93010; 99285-25; J0131